=== PATIENT | female | born 1975 | race Caucasian/White ===

== ENCOUNTER 2023-07-17 18:57 | Emergency (ER) | payer OTHER, SELFPAY ==
--- NOTE | ~2023-07-17 | XR_ITS ---
EXAM: XR hip RT 2V w AP pelvis DATE: 07/17/2023 19:17 HISTORY: fall ONTO RIGHT HIP TODAY . COMPARISON: None available. FINDINGS: Normal mineralization. No fracture or dislocation. No lytic or blastic lesion. Degenerativ e changes in the lumbar spine. Mild bilateral hip osteoarthritis. Pelvic and hip enthesopathy. No ero nicko or periosteal change. Soft tissues within normal limits. IMPRESSION: No acute osseous finding in the pelvis or right hip. Reviewed, dictated and finalized at location K.
--- NOTE | ~2023-07-17 | CT_ITS ---
EXAMINATION: CT pelvis wo con DATE: 07/17/2023 21:57 INDICATION: TECHNIQUE: Computed tomography (CT) of the pelvis was performed without intravenous contrast. Automat ed exposure control and iterative reconstruction technique were employed. The dose-length product was 871.37 mGy-cm. COMPARISON: None FINDINGS: Small fat-containing and small bowel containing, uncomplicated appearing ventral hernias. 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 Atherosclerotic calcifications. Degenerative changes in the lumbar spine and bilateral hips. No fracture or dislocation. IMPRESSION: No acute osseous finding in the pelvis or hips. Reviewed, dictated and finalized at location K.
[2023-07-17 18:57] VITALS: BP 127/75; PULSE 78; RESP 16; TEMP 36.4; O2SAT 97
--- NOTE | 2023-07-17 21:32 | ED.FALL ---
HPI - Fall General Chief Complaint: Fall Stated Complaint: fell in shower Time Seen by Provider: 07/17/23 21:12 Source: patient Mode of arrival: ambulatory Limitations: no limitations History of Present Illness HPI Narrative: Patient is a 47 y/o female who presents to the ED with c/o a fall. Patient reports she slipped and fell in the shower and landed on her right hip. She did not hit her head or lose consciousness. She complains of pain and bruising to her right hip. She has been ambulatory since the fall and able to bear weight on the right leg, though has discomfort with this. Denies any other injuries or areas of pain. Denies neck or back pain. Denies dizziness, lightheadedness, nausea, vomiting. Patient has not taken anything for pain prior to arrival. She does take Plavix. Related Data Allergies Allergy/AdvReac Type Severity Reaction Status Date / Time No Known Allergies Allergy Mild Verified 08/20/09 14:32 Review of Systems Review of Systems: CONSTITUTIONAL: Denies fever, chills, or sweats. SKIN: See HPI. MUSCULOSKELETAL: See HPI. NEUROLOGIC: See HPI. All systems reviewed & are unremarkable except as noted in HPI and below Exam Narrative: GENERAL: Appears older than stated age, morbidly obese with BMI of 41.0, non-toxic, in no acute distress. HEAD: Normocephalic, atraumatic. NECK: Supple. No adenopathy, no masses. RESPIRATORY: Airway patent, respirations nonlabored. Clear to auscultation bilaterally, no rales, rhonchi, wheezing. CARDIOVASCULAR: Regular rate and rhythm without murmurs, rubs, or gallops. Pedal pulses 2+ and equal bilaterally. MUSCULOSKELETAL: Moves all extremities. Strength/ROM intact without gross deformities. Tenderness palpation over right lateral hip/proximal thigh. Large area of ecchymosis present. No palpable hematoma. Sensation intact. SKIN: Warm, dry, normal color. No rashes. NEURO: A&O X3. Speech clear. Cranial nerves II-XII grossly intact. Steady gait. No ataxic movements. PSYCHIATRIC: Appropriate mood and affect. Normal interaction. Course Vital Signs Vital signs: Vital Signs Temperature 97.5 F L 07/17/23 18:57 Pulse Rate 78 07/17/23 18:57 Respiratory Rate 16 07/17/23 18:57 Blood Pressure 127/75 07/17/23 18:57 Pulse Oximetry 97 07/17/23 18:57 Temperature 97.5 F L 07/17/23 18:57 Pulse Rate 78 07/17/23 22:34 Respiratory Rate 18 07/17/23 22:34 Blood Pressure 138/81 07/17/23 22:34 Pulse Oximetry 97 07/17/23 22:34 MDM - Fall MDM Narrative Medical decision making narrative: Patient presented to ED status post ground-level mechanical fall in shower, pain to right hip with bruising present. No head injury or LOC. No other injuries. No evidence of neurovascular compromise. Patient is on Plavix, though exam does not reveal any evidence of hematoma formation. I did discuss this with patient and advised her to closely monitor for worsening bruising/swelling/firmness. X-ray of right hip and pelvis without abnormalities. CT pelvis was obtained and does not show evidence for fracture, dislocation, hematoma. Patient will be discharged. Advised close follow-up with PCP. Discussed pain management. Given return precautions. Patient agrees with plan. Discharged in stable condition. Medical Records Attestation: I reviewed the patient's medical records. Imaging Data Attestation: I personally reviewed and interpreted this imaging study as follows: Radiologist's impression: ITS Impressions Hip/Pelvis X-Ray 07/17/23 19:17 IMPRESSION: No acute osseous finding in the pelvis or right hip. Pelvis CT 07/17/23 22:08 IMPRESSION: No acute osseous finding in the pelvis or hips. Discharge Plan Discharge Clinical Impression: Fall from ground level Contusion of right hip Qualifiers: Encounter type: initial encounter Qualified Code(s): S70.01XA - Contusion of right hip, initial encounter Patient Disposition:
[2023-07-17] MEDS: HYDROcodone/acetaminophen (*CRX) 5-325 MG TABLET 1 TAB PO (21:41)
[2023-07-17 22:34] VITALS: BP 138/81; PULSE 78; RESP 18; O2SAT 97
== END 2023-07-17 22:36 | disposition home or self-care (01) ==
PROVIDERS: Emergency Provider Physician Assistant; PCP Internal Medicine
DX: S70.01XA Contusion of right hip, initial encounter (principal); W18.2XXA Fall in (into) shower or empty bathtub, initial encounter
CPT/HCPCS: 72192; 73502; 99284; A9270

== ENCOUNTER 2023-09-19 11:20 | Outpatient (CLI) | payer OTHER, SELFPAY ==
[2023-09-19 12:25] LABS: Basophils Percent Auto 0.4 % (0.2-1.2); Eosinophils Absolute Auto 0.3 K/mm3 (0-0.3); Eosinophils Percent Auto 2.3 % (0-4.4); Hematocrit 45.2 % (37.0-47.0); Hemoglobin 14.1 g/dL (12.0-15.0); Immature Granulocyte Absolute 0.04 K/mm3 (0.00-0.031); Immature Granulocyte Percent A 0.4 % (0-0.5); Lymphocytes Absolute Auto 3.22 K/mm3 (0.9-3.2); Lymphocytes Percent Auto 29.6 % (18.3-44.2); Mean Corpuscular HGB Conc 31.2 g/dl (32-36); Mean Corpuscular Hemoglobin 28.4 pg (26-34); Mean Corpuscular Volume 90.9 fl (80-100); Mean Platelet Volume 10.2 fl (7.4-10.4); Monocytes Absolute Auto 0.9 K/mm3 (0.1-0.6); Monocytes Percent Auto 8.2 % (2.6-8.5); Neutrophils Absolute Auto 6.4 K/mm3 (1.3-6.7); Neutrophils Percent Auto 59.1 % (45.5-73.1); Platelet Count Result 330 k/mm3 (150-375); Red Blood Count 4.97 M/mm3 (4.2-5.4); Red Cell Distribution Width 13.4 % (11.5-14.5); White Blood Count 10.9 K/mm3 (4.5-10.0)
[2023-09-19 12:39] LABS: Anion Gap 10 mmol/L (8-16); Blood Urea Nitrogen 10 mg/dL (7-17); Calcium 9.2 mg/dL (8.4-10.2); Carbon Dioxide 28 mmol/L (22-30); Chloride 101 mmol/L (98-107); Estimated Glomerular Filt Rate > 60; Glucose 89 mg/dL (65-110); Potassium 4.1 mmol/L (3.4-5.0); Sodium 139 mmol/L (137-145)
== END 2023-09-19 11:21 | disposition home or self-care (01) ==
LOC: ANHLAB 11:22
PROVIDERS: PCP Internal Medicine; Visit Provider Internal Medicine Cardiovascular Disease
DX: I25.110 Atherosclerotic heart disease of native coronary artery with unstable angina pectoris (principal); R06.09 Other forms of dyspnea
CPT/HCPCS: 36415; 80048; 85025